=== PATIENT | female | born 1940 | race Caucasian/White ===

== ENCOUNTER → 2020-03-28 12:27 | Outpatient (BNVA) | payer MEDICARE, OTHER, SELFPAY | PROVIDERS: Family Provider Nurse Practitioner Family; PCP Nurse Practitioner Family; Visit Provider Nurse Practitioner Family | DX: I10 Essential (primary) hypertension (principal); E78.5 Hyperlipidemia, unspecified; R53.83 Other fatigue | CPT/HCPCS: 80053; 80061; 84443; 85025 ==

== ENCOUNTER → 2021-02-26 10:50 | Outpatient (BNVA) | payer MEDICARE, OTHER, SELFPAY | PROVIDERS: Family Provider Nurse Practitioner Family; PCP Nurse Practitioner Family; Visit Provider Nurse Practitioner Family | DX: M25.511 Pain in right shoulder (principal) | CPT/HCPCS: 73030 ==

== ENCOUNTER 2021-03-20 06:00 | Outpatient (RCR) | payer MEDICARE, OTHER, SELFPAY | END 2021-04-04 23:59 | disposition home or self-care (01) | LOC: WPT 06:00 | PROVIDERS: Family Provider Nurse Practitioner Family; PCP Nurse Practitioner Family; Referring Provider Orthopaedic Surgery; Visit Provider Orthopaedic Surgery | DX: M75.101 Unspecified rotator cuff tear or rupture of right shoulder, not specified as traumatic (principal) | CPT/HCPCS: 97110; 97161 ==

== ENCOUNTER 2021-04-05 06:00 | Outpatient (RCR) | payer MEDICARE, OTHER, SELFPAY | END 2021-05-05 23:59 | disposition home or self-care (01) | LOC: WPT 06:00 | PROVIDERS: Family Provider Nurse Practitioner Family; PCP Nurse Practitioner Family; Referring Provider Orthopaedic Surgery; Visit Provider Orthopaedic Surgery | DX: M75.101 Unspecified rotator cuff tear or rupture of right shoulder, not specified as traumatic (principal) | CPT/HCPCS: 97110 ==

== ENCOUNTER → 2021-06-15 14:46 | Outpatient (BNVA) | payer MEDICARE, OTHER, SELFPAY | PROVIDERS: Family Provider Nurse Practitioner Family; PCP Nurse Practitioner Family; Visit Provider Nurse Practitioner Family | DX: R30.0 Dysuria (principal); N39.0 Urinary tract infection, site not specified | CPT/HCPCS: 81000 ==

== ENCOUNTER → 2021-06-22 12:31 | Outpatient (BNVA) | payer MEDICARE, OTHER, SELFPAY | PROVIDERS: Family Provider Nurse Practitioner Family; PCP Nurse Practitioner Family; Visit Provider Nurse Practitioner Family | DX: N39.0 Urinary tract infection, site not specified (principal) | CPT/HCPCS: 81003; 87077; 87086; 87184 ==

== ENCOUNTER 2022-02-07 10:26 | Emergency (ER) | payer MEDICARE, OTHER, SELFPAY ==
[2022-02-07 10:31] VITALS: BP 173/82; PULSE 71; RESP 16; TEMP 36.7; O2SAT 100; BMI 32.5
--- NOTE | 2022-02-07 12:20 | XRR_ITS ---
PROCEDURE INFORMATION: Exam: XR Pelvis Exam date and time: 02/07/2022 12:26 PM Age: 81 years old Clinical indication: Pelvic pain; Patient HX: Chronic pain in RT hip and si joints; Additional info: Right hip and si pain TECHNIQUE: Imaging protocol: XR pelvis. Views: 1 or 2 view. Total images: 1 COMPARISON: CR Abdomen Series Acute [id number] 02/10/2019 7:41 PM FINDINGS: Bones/joints: Spinal fusion hardware noted. No acute fracture nor subluxation. No osseous erosion nor periosteal reaction. Soft tissues: Unremarkable. XR/XR pelvis 1-2V* [id number] IMPRESSION: No acute osseous pathology.
--- NOTE | 2022-02-07 12:21 | W.ED.BACK ---
HPI - Back Pain/Injury General: Chief Complaint: Back Pain/Injury Stated Complaint: Back pain Time Seen by Provider: 02/07/22 12:05 Source: patient and family Mode of arrival: ambulatory Limitations: no limitations History of Present Illness: This patient presents to the emergency department accompanied by her daughter as well as her . She states she is having right-sided low back and hip pain that began approximately 2 days ago. She states she rolled over in bed on the morning of the beginning of pain and felt symptoms. She states it is pretty constant and pretty uncomfortable. She states there is nothing that relieves it thus far. She states it is all right-sided starts in the right side of her back down low and radiates into her right butt cheek and around to her right lateral hip. She states it does not go below those regions. There is no difficulty with movement of the lower extremities. No perineal or perianal sensation changes. No difficulty with bowel or bladder control. She denies any fevers or chills. She has had a prior lumbar fusion for HNP as well as spinal stenosis that was done 10 years ago. She states she has some residual left leg numbness as a result of that procedure but no motor weakness. She states she occasionally gets left-sided low back pain but this is right-sided which is a little different than usual. She denies any falls or traumas or known inciting events other than rolling out of bed. She has a history of hypertension and bundle branch block. No history of dysuria, kidney stones etc. MD elicited complaint: back pain Pertinent past history: prior back pain and back surgery Location: lumbar spine and sacrum Radiation: buttocks Exacerbating factors: movement Relieving factors: none Context: unknown Associated symptoms: Reports no associated symptoms; Deny abdominal pain, chills, dysuria, fever(s), nausea, urinary urgency or vomiting Review of Systems Const: Denies: fever(s), chills or body aches Eyes: Denies: change in vision or photophobia ENMT: Denies: throat pain or odynophagia Card: Denies: chest pain, palpitations, irregular heart rhythm or swelling of feet/ankles Resp: Denies: dyspnea, productive cough or non-productive cough GI: Denies: abdominal pain, nausea or vomiting : Denies: flank pain, difficulty voiding, dysuria, urinary frequency, urinary urgency, urinary hesitancy, dribbling or urinary incontinence Musc: Reports: back pain; Denies: neck pain, extremity pain, extremity swelling or joint pain Skin/Breast: Denies: rash or pruritus Neuro: Denies: headache(s), weakness in extremities or sensory changes Pradip/Lymph: Denies: easy bruising or easy bleeding PFSH ED PFSH: Medical History (Updated 02/07/22 @ 13:42 by Willie Simmons DO) Allergic drug rash Anxiety COPD (chronic obstructive pulmonary disease) DJD of right shoulder Irritable bowel syndrome (IBS) Lower respiratory tract infection Osteoarthritis (arthritis due to wear and tear of joints) Right shoulder pain Rotator cuff tear, right Urinary tract infection UTI due to Klebsiella species Surgical History Status post intraocular lens implant Social History Smoking and tobacco status: never smoked Physical Exam Narrative: EXAM NARRATIVE: Elderly female who moves rather slowly with the aid of a walker. She is alert makes good eye contact speech is goal-directed. Const: COMMON NORMALS: no acute distress and patient oriented x3 GENERAL APPEARANCE: well kempt HENMT: COMMON NORMALS: normocephalic, atraumatic and Normal nasal mucous membranes and turbinates present HEAD & SCALP: normocephalic and atraumatic NOSE: Normal nasal mucous membranes and turbinates present Eye: COMMON NORMALS: Equal, round and reactive pupils present, EOMs intact bilaterally and conjunctivae normal CONJUNCTIVA: Yes conjunctivae normal PUPIL: Yes Equal, round and reactive pupils present Neck/C-Spine: COMMON NORMALS: full ROM, supple and no JVD CERVICAL SPINE: Yes cervical ROM normal, No pain with cervical ROM and No Paracervical muscle tenderness Resp: COMMON NORMALS: normal respiratory effort, No retractions and No use of accessory muscles EFFORT & INSPECTION: Yes able to speak in complete sentences Cardio: COMMON NORMALS: no JVD, regular rate and Peripheral pulses 2+ throughout RATE: regular rate PERIPHERAL PULSES: Peripheral pulses 2+ throughout GI: COMMON NORMALS: Soft to palpation, non-tender and no masses PALPATION: Yes Soft to palpation Back/Pelvis: COMMON NORMALS: thoracic and lumbar spine normal to inspection and straight leg raise negative bilaterally THORACIC SPINE/UPPER BACK: No thoracic spinal tenderness and No paraspinal muscle tenderness LUMBAR SPINE/LOWER BACK: Yes normal to inspection, Yes ROM limited and Yes paraspinal muscle tenderness Lumbar paraspinal muscle tenderness: right PELVIS: Yes sciatic notch tenderness on the right SACROILIAC JOINTS: Yes SI joint(s) abnormal SI joint details: tender to palpation (Right-sided) Extremity: COMMON NORMALS: normal to inspection, full ROM, no joint enlargement, no calf tenderness and no pedal edema Neuro: COMMON NORMALS: patient oriented x3, moves all extremities and no focal motor deficits SPEECH: speech normal DEEP TENDON REFLEXES: Right patellar reflex intensity grade: 1+, Left patellar reflex intensity grade: 1+, Right ankle reflex intensity grade: 1+ and Left ankle reflex intensity grade: 1+ Psych: COMMON NORMALS: mental status grossly normal APPEARANCE: Yes well kempt Skin: COMMON NORMALS: no rashes or lesions noted, no wounds and turgor normal GENERAL SKIN EXAM: no rashes or lesions noted and turgor normal Course Reevaluation(s): Reevaluation #1: Reviewed plain film with the patient and family. No evidence of acute bony disruption to include no evidence of hardware displacement etc. I do not feel any additional imaging is indicated at this time given her current history, clinical exam and plain film findings. I offered her trigger point injection for the area of discomfort over the posterior superior iliac spine. She agreed to proceed. Time: 13:11 Reevaluation #2: Using aseptic technique area of maximal tenderness in the soft tissue overlying the lumbar region and a region soft tissue overlying the sacroiliac joint was injected with 0.5% Marcaine approximately 4 mL or 20 mg of Marcaine injected in a fan like fashion. Patient tolerated procedure well and stated that she is already feeling relief. Time: 13:38 Vital Signs: Vital signs: Vital Signs Temperature 98.0 F 02/07/22 12:51 Pulse Rate 71 02/07/22 12:51 Respiratory Rate 16 02/07/22 12:51 Blood Pressure 173/82 02/07/22 12:51 Pulse Oximetry 100 02/07/22 12:51 MDM - Back Pain/Injury Medical Decision Making Patient with a known history of degenerative disc disease and prior spinal fusion many years ago presents with right sided low back pain predominantly in the sacroiliac region with some mild sciatic notch tenderness as well. Plain films of the pelvis to to illuminate SI joints, hip and pelvis and sacrum are unremarkable. She was given a trigger point injection which she tolerated well. I discussed expected course with the patient and family. Again no evidence at this time to suggest hardware disruption, or other red flag or worrisome findings at this time. Return precautions were detailed. Labs Radiology Impressions Pelvis X-Ray 02/07/22 12:20 IMPRESSION: No acute osseous pathology. Discharge Plan Discharge Patient Disposition: Home Clinical Impression: Low back pain Condition: Stable Prescriptions: No Action dicyclomine 20 mg tablet 20 mg PO QID PRN (Reason: abdominal discomfort) Qty: 30 0RF lidocaine HCl [Xylocaine] 10 mg/mL (1 %) solution 2 ml IM ONCE Qty: 1 0RF ceftriaxone 1 gram recon soln 1 gm IM ONCE Qty: 1 0RF dexamethasone sodium phosphate 10 mg/mL solution 4 mg IM ONCE Qty: 0.4 0RF dexamethasone sodium phosphate 4 mg/mL solution 4 mg IM ONCE Qty: 1 0RF losartan 25 mg tablet 25 mg PO DAILY 0RF meclizine 25 mg tablet 25 mg PO TID 0RF ibuprofen 800 mg tablet 800 mg PO Q8H PRN (Reason: pain) 0RF acetaminophen [Tylenol Extra Strength] 500 mg tablet 500 mg PO Q6H PRN (Reason: pain) 0RF omega-3 fatty acids 500 mg capsule 500 mg PO DAILY 0RF cholecalciferol (vitamin D3) 125 mcg (5,000 unit) capsule 125 mcg PO DAILY 0RF hydrocodone-acetaminophen 5-325 mg tablet 1 tab PO Q4H PRN (Reason: pain) 5 Days Qty: 20 0RF cefuroxime axetil 250 mg tablet 250 mg PO BID 7 Days Qty: 14 0RF metoprolol succinate 25 mg tablet extended release 24 hr 25 mg PO DAILY Qty: 90 2RF bupropion HCl 150 mg tablet extended release 24 hr See Rx Instructions .ROUTE .COMPLEX Qty: 90 1RF Dose Instruction: TAKE 1 TABLET BY MOUTH ONCE DAILY IN THE MORNING Rx Instructions: TAKE 1 TABLET BY MOUTH ONCE DAILY IN THE MORNING ciprofloxacin HCl [Cipro] 250 mg tablet 250 mg PO BID PRN (Reason: UTI) 5 Days Qty: 10 0RF doxycycline hyclate 100 mg capsule 100 mg PO BID Qty: 20 0RF Rx Instructions: take with food dexamethasone [Decadron] 6 mg tablet 6 mg PO DAILY Qty: 7 0RF albuterol sulfate 2.5 mg /3 mL (0.083 %) solution for nebulization See Rx Instructions .ROUTE .COMPLEX Qty: 180 2RF Dose Instruction: USE 1 VIAL VIA NEBULIZER FOUR TIMES DAILY NEEDED FOR SHORTNESS OF BREATH OR WHEEZING Rx Instructions: USE 1 VIAL VIA NEBULIZER FOUR TIMES DAILY NEEDED FOR SHORTNESS OF BREATH OR WHEEZING methocarbamol 750 mg tablet See Rx Instructions .ROUTE .COMPLEX Qty: 180 0RF Dose Instruction: Take 1 tablet by mouth twice daily Rx Instructions: Take 1 tablet by mouth twice daily Discharge Orders: Discharge ED (Routine); Ordered 02/07/22 Ordered By: Willie Simmons Referrals: CONSUELO Andino, HEALTHCARE SALES REPRESENTATIVE [Primary Care Provider] - Discharge Diet: Usual diet Discharge Activity: Increase activity as tolerated Patient Instructions: Opioid Safety Activity Restrictions/Additional Instructions: KeepAs we discussed we expect your low back pain to improve over the next 2 to 3 days. Continue as active as possible. Use your lidocaine patch as well as use cool packs to the area of involvement. Should you have increasing pain, nonresolution of pain, or any other concerning symptoms that we discussed return to this or the nearest emergency department or follow-up with your doctor. Coding Level of Care Code ED Liner Checker for Sai Mora Exam Comprehensive
[2022-02-07 12:51] VITALS: BP 173/82; PULSE 71; RESP 16; TEMP 36.7; O2SAT 100
== END 2022-02-07 14:16 | disposition home or self-care (01) ==
PROVIDERS: Emergency Provider Emergency Medicine; Family Provider Nurse Practitioner Family; PCP Nurse Practitioner Family
DX: M54.50 Low back pain, unspecified (principal); Z98.1 Arthrodesis status; Z79.891 Long term (current) use of opiate analgesic
CPT/HCPCS: 72170; 99283; J3490

== ENCOUNTER 2022-02-12 07:52 | Emergency (ER) | payer MEDICARE, OTHER, SELFPAY ==
[2022-02-12 08:02] VITALS: BP 179/84; PULSE 72; RESP 18; TEMP 36.4; O2SAT 97; BMI 31.5
--- NOTE | 2022-02-12 08:10 | ED_ITS ---
HPI - Back Pain/Injury General: Chief Complaint: Back Pain/Injury Stated Complaint: BACK PAIN X 1 WK Time Seen by Provider: 02/12/22 07:53 Source: patient Mode of arrival: EMS Limitations: no limitations History of Present Illness: 81-year-old female presents emergency room complaint of back pain that she had for the last week. She had problems with her back in the past and has history of remote previous back surgery. She is not had any precipitating event she has tried Robaxin at home as well as other oral anti-inflammatories and acetaminophen with no relief. She is given fentanyl in route she states pain is moderate now and is only worsens if she tries to move. She denies any dysuria urgency or frequency denies any abdominal pain. MD elicited complaint: back pain Pertinent past history: prior back pain Onset (ago): week(s) (1) Timing: constant Severity: severe Similar Symptoms Previously: Yes Quality: sharp Location: lumbar spine Radiation: none Exacerbating factors: movement Relieving factors: supine Associated symptoms: Deny abdominal pain, arthralgias, chills, change in bowel habits, difficulty walking, dysuria, fatigue, fecal incontinence, fever(s), hematuria, myalgias, nausea, numbness, syncope, tingling/numbness/burning, urinary frequency, urinary urgency, vomiting or weakness Review of Systems Const: Denies: fever(s), chills or fatigue ENMT: Denies: throat pain, ear or mastoid pain, nasal discharge or nasal congestion Card: Denies: chest pain, palpitations or syncope Resp: Denies: dyspnea, productive cough or non-productive cough GI: Denies: abdominal pain, nausea, vomiting, fecal incontinence or change in bowel habits : Denies: dysuria, urinary urgency or hematuria Skin/Breast: Denies: rash or pruritus Neuro: Denies: difficulty walking PFSH ED PFSH: Medical History Allergic drug rash Anxiety COPD (chronic obstructive pulmonary disease) DJD of right shoulder Irritable bowel syndrome (IBS) Lower respiratory tract infection Osteoarthritis (arthritis due to wear and tear of joints) Right shoulder pain Rotator cuff tear, right Urinary tract infection UTI due to Klebsiella species Surgical History Status post intraocular lens implant Social History Smoking and tobacco status: never smoked Physical Exam Const: GENERAL APPEARANCE: cooperative and comfortable ORIENTATION/CONSCIOUSNESS: Yes awake, Yes oriented to person, Yes oriented to place and Yes oriented to time HENMT: COMMON NORMALS: normocephalic, atraumatic and hearing grossly normal bilaterally HEAD & SCALP: normocephalic and atraumatic Neck/C-Spine: COMMON NORMALS: no JVD Resp: COMMON NORMALS: normal respiratory effort, No retractions, No use of accessory muscles and clear to auscultation bilaterally AUSCULTATION: clear to auscultation bilaterally Cardio: COMMON NORMALS: no JVD, regular rate, regular rhythm and No murmurs present (Cardio) RATE: regular rate RHYTHM: regular rhythm GI: COMMON NORMALS: Soft to palpation and No hepatosplenomegaly present AUSCULTATION: Yes normoactive bowel sounds PALPATION: Yes Soft to palpation, No Tenderness to palpation present (GI), No Guarding due to palpation present (GI) and Yes No hepatosplenomegaly present Extremity: COMMON NORMALS: normal to inspection, capillary refill normal, no clubbing, cyanosis or edema, no calf tenderness and no pedal edema Neuro: SENSORIUM/ORIENTATION: Yes oriented to person, Yes oriented to place and Yes oriented to time Skin: COMMON NORMALS: no rashes or lesions noted GENERAL SKIN EXAM: no rashes or lesions noted Course Vital Signs: Vital signs: Vital Signs Temperature 97.9 F 02/12/22 10:39 Pulse Rate 65 02/12/22 10:39 Respiratory Rate 18 02/12/22 10:39 Blood Pressure 146/92 02/12/22 10:39 Pulse Oximetry 100 02/12/22 09:36 MDM - Back Pain/Injury Medical Decision Making Improved with medications. No acute fractures previous hardware from back surgery in place no apparent loosening. We will discharge patient home with steroid taper muscle relaxer pain medications follow-up with primary care return if has problems Medical Records I reviewed the patient's medical records. Labs I reviewed the patient's lab results. Radiology Impressions Lumbar Spine X-Ray 02/12/22 08:10 IMPRESSION: Postoperative lumbar spine with no acute abnormality identified. Discharge Plan Discharge Patient Disposition: Home Clinical Impression: Strain of lumbar region Condition: Stable Prescriptions: New hydrocodone-acetaminophen 5-325 mg tablet 1 tab PO Q6H PRN (Reason: pain) Qty: 20 0RF prednisone 20 mg tablet 20 mg PO TID Qty: 15 0RF Rx Instructions: 1 p.o. 3 times daily x3 days, 1 p.o. twice daily x2 days, 1 p.o. daily x2 days tizanidine 2 mg capsule 2 mg PO Q8H PRN (Reason: muscle spasticity) Qty: 20 0RF Discontinued lidocaine HCl [Xylocaine] 10 mg/mL (1 %) solution 2 ml IM ONCE Qty: 1 0RF ceftriaxone 1 gram recon soln 1 gm IM ONCE Qty: 1 0RF dexamethasone sodium phosphate 10 mg/mL solution 4 mg IM ONCE Qty: 0.4 0RF dexamethasone sodium phosphate 4 mg/mL solution 4 mg IM ONCE Qty: 1 0RF hydrocodone-acetaminophen 5-325 mg tablet 1 tab PO Q4H PRN (Reason: pain) 5 Days Qty: 20 0RF cefuroxime axetil 250 mg tablet 250 mg PO BID 7 Days Qty: 14 0RF ciprofloxacin HCl [Cipro] 250 mg tablet 250 mg PO BID PRN (Reason: UTI) 5 Days Qty: 10 0RF doxycycline hyclate 100 mg capsule 100 mg PO BID Qty: 20 0RF Rx Instructions: take with food dexamethasone [Decadron] 6 mg tablet 6 mg PO DAILY Qty: 7 0RF methocarbamol 750 mg tablet See Rx Instructions .ROUTE .COMPLEX Qty: 180 0RF Dose Instruction: Take 1 tablet by mouth twice daily Rx Instructions: Take 1 tablet by mouth twice daily No Action dicyclomine 20 mg tablet 20 mg PO QID PRN (Reason: abdominal discomfort) Qty: 30 0RF losartan 25 mg tablet 25 mg PO DAILY 0RF meclizine 25 mg tablet 25 mg PO TID 0RF ibuprofen 800 mg tablet 800 mg PO Q8H PRN (Reason: pain) 0RF acetaminophen [Tylenol Extra Strength] 500 mg tablet 500 mg PO Q6H PRN (Reason: pain) 0RF omega-3 fatty acids 500 mg capsule 500 mg PO DAILY 0RF cholecalciferol (vitamin D3) 125 mcg (5,000 unit) capsule 125 mcg PO DAILY 0RF metoprolol succinate 25 mg tablet extended release 24 hr 25 mg PO DAILY Qty: 90 2RF bupropion HCl 150 mg tablet extended release 24 hr See Rx Instructions .ROUTE .COMPLEX Qty: 90 1RF Dose Instruction: TAKE 1 TABLET BY MOUTH ONCE DAILY IN THE MORNING Rx Instructions: TAKE 1 TABLET BY MOUTH ONCE DAILY IN THE MORNING albuterol sulfate 2.5 mg /3 mL (0.083 %) solution for nebulization See Rx Instructions .ROUTE .COMPLEX Qty: 180 2RF Dose Instruction: USE 1 VIAL VIA NEBULIZER FOUR TIMES DAILY NEEDED FOR SHORTNESS OF BREATH OR WHEEZING Rx Instructions: USE 1 VIAL VIA NEBULIZER FOUR TIMES DAILY NEEDED FOR SHORTNESS OF BREATH OR WHEEZING Discharge Orders: Discharge ED (Routine); Ordered 02/12/22 Ordered By: Alfred Nuñez Referrals: CONSUELO Andino, SARAHY [Referring] - Discharge Diet: Usual diet Discharge Activity: Increase activity as tolerated Patient Instructions: Opioid Safety Activity Restrictions/Additional Instructions: Follow-up with your primary care doctor as soon as you are able. Increase activity as tolerated. Coding Level of Care Code ED Street Railway Line Installer for Sai Fwmadelaine Exam Comprehensive
--- NOTE | 2022-02-12 08:10 | XR_ITS ---
WS: [id number] XR lumbar spine 2-3V* [id number] REASON FOR EXAM: low back pain FINDINGS: No compression fracture or other vertebral body abnormality. Posterior pedicle screws and rods L3-S1. Interbody fusion L3-S1. Severe narrowing of the intervertebral disc space at L1-L2 with 3/4 mm of anterolisthesis of L2 in re lation to L1. XR/XR lumbar spine 2-3V* [id number] IMPRESSION: Postoperative lumbar spine with no acute abnormality identified.
[2022-02-12] MEDS: ketorolac 30 mg/mL INJ 15 MG IVP (08:21)
[2022-02-12] MEDS: orphenadrine 30 mg/mL Inj 2 mL 60 MG IVP (08:21)
[2022-02-12 09:15] VITALS: BP 179/94; PULSE 96; RESP 18; TEMP 5392.7; TEMP 9739; O2SAT 99
[2022-02-12 09:36] VITALS: BP 150/63; PULSE 65; RESP 18; O2SAT 100
[2022-02-12] MEDS: dexamethasone 10 mg/mL INJ IVP (10:36)
[2022-02-12 10:39] VITALS: BP 146/92; PULSE 65; RESP 18; TEMP 36.6
== END 2022-02-12 10:56 | disposition home or self-care (01) ==
PROVIDERS: Emergency Provider Family Medicine; PCP Family Medicine
DX: S39.012A Strain of muscle, fascia and tendon of lower back, initial encounter (principal); X58.XXXA Exposure to other specified factors, initial encounter; Z79.891 Long term (current) use of opiate analgesic
CPT/HCPCS: 72100; 96374; 96375; 99284; J1100; J1885; J2360

== ENCOUNTER 2022-03-19 06:00 | Outpatient (RCR) | payer MEDICARE, OTHER, SELFPAY | END 2022-04-04 23:59 | disposition home or self-care (01) | LOC: WPT 06:00 | PROVIDERS: PCP Family Medicine; Referring Provider Family Medicine; Visit Provider Family Medicine | DX: M75.100 Unspecified rotator cuff tear or rupture of unspecified shoulder, not specified as traumatic (principal) | CPT/HCPCS: 97161 ==

== ENCOUNTER → 2022-04-25 10:33 | Outpatient (BNVA) | payer MEDICARE, OTHER, SELFPAY | PROVIDERS: PCP Family Medicine; Visit Provider Anesthesiology Pain Medicine | DX: M47.816 Spondylosis without myelopathy or radiculopathy, lumbar region (principal); M53.3 Sacrococcygeal disorders, not elsewhere classified; M43.26 Fusion of spine, lumbar region; M19.011 Primary osteoarthritis, right shoulder; M79.605 Pain in left leg; M79.604 Pain in right leg; Z79.891 Long term (current) use of opiate analgesic | CPT/HCPCS: 99205 ==

== ENCOUNTER → 2022-04-30 13:25 | Outpatient (BNVA) | payer MEDICARE, OTHER, SELFPAY | PROVIDERS: PCP Family Medicine; Visit Provider Orthopaedic Surgery | DX: M54.50 Low back pain, unspecified (principal); M79.604 Pain in right leg; Z98.1 Arthrodesis status | CPT/HCPCS: 99204 ==

== ENCOUNTER 2022-06-20 13:51 | Outpatient (CLI) | payer MEDICARE, OTHER, SELFPAY ==
--- NOTE | 2022-06-20 13:58 | USCV_ITS ---
InfanteChloé Age: 81 Gender: F : 1940 Exam Date: 06/20/2022 14:08 Ordering Phys: Dawson Alcala Technologist: Exam Location: [facility] [place] Indication: Arrhythmia BP: 126 / 72 HR: 79 Rhythm: Sinus Technical Quality: Adequate MEASUREMENTS (Male / Female) Normal Values 2D ECHO LV Diastolic Diameter PLAX 3.5 cm 4.2 - 5.9 / 3.9 - 5.3 cm LV Systolic Diameter PLAX 2.2 cm IVS Diastolic Thickness 1.4 cm 0.6 - 1.0 / 0.6 - 0.9 cm IVS Systolic Thickness 1.1 cm LVPW Diastolic Thickness 1.1 cm 0.6 - 1.0 / 0.6 - 0.9 cm LVPW Systolic Thickness 1.0 cm LVOT Diameter 2.0 cm LV Ejection Fraction 2D Teich 66.9 % LA Diameter 3.3 cm Aorta at Sinotubular Diameter 2.5 cm IVC Diameter 1.2 cm M-MODE Aortic Annulus Diameter 3.0 cm LA Ao Ratio MM 1.1 MV E Point Septal Separation 0.7 cm DOPPLER AV Peak Velocity 116.0 cm/s LVOT Peak Velocity 84.0 cm/s AV Area Cont Eq vti 2.1 cm squared AV Area Cont Eq pk 2.3 cm squared MV Area PHT 5.0 cm squared Mitral E to A Ratio 0.9 MV E' Velocity 47.5 cm/s Mitral E to MV E' Ratio 12.9 Mitral E to LV E' Lateral Ratio 11.4 Mitral E to LV E' Septal Ratio 15.2 TR Peak Velocity 272.7 cm/s TR Peak Gradient 29.7 mmHg Right Atrial Pressure 3.0 mmHg Pulmonary Artery Systolic Pressu 32.7 mmHg PV Peak Velocity 111.0 cm/s RV Acceleration Time 0.1 s FINDINGS Left Ventricle Normal left ventricular size, systolic function and wall thickness, with no regional wall motion abnormalities. Left ventricular ejection fraction is estimated at 55-60 %. Normal diastolic function. Right Ventricle Normal right ventricular size and systolic function. Right ventricular systolic pressure 31 mmHg. Right Atrium Normal right atrial size. Left Atrium Normal left atrial size. Mitral Valve Mildly thickened mitral valve. No mitral valve stenosis. Trace mitral valve regurgitation. Aortic Valve Structurally normal trileaflet aortic valve. No aortic valve stenosis. No aortic valve regurgitation. Tricuspid Valve Structurally normal tricuspid valve. No tricuspid valve stenosis. Mild tricuspid valve regurgitation. Pulmonic Valve Structurally normal pulmonic valve. No pulmonary valve stenosis. No pulmonary valve regurgitation. Pericardium No pericardial effusion. Aorta Normal size aortic root and proximal ascending aorta. IVC Normal IVC dimension with >50% respiratory change of the inferior vena cava. CONCLUSIONS 1. Normal left ventricular size, systolic function and wall thickness, with no regional wall motion abnormalities. Left ventricular ejection fraction is estimated at 55-60 %. Normal diastolic function. 2. Normal right ventricular size and systolic function. 3. Mild tricuspid valve regurgitation. 4. Pulmonary artery pressure estimated at 31 mmHg. 5. No prior similar studies to compare. Denise Herrera MD (Electronically Signed) Final Date: 20 June 2022 16:27 S
== END 2022-06-20 13:52 | disposition home or self-care (01) ==
LOC: RAD 13:52
PROVIDERS: PCP Family Medicine; Visit Provider Family Medicine
DX: R01.1 Cardiac murmur, unspecified (principal); R42 Dizziness and giddiness; R00.0 Tachycardia, unspecified; I49.9 Cardiac arrhythmia, unspecified; I07.1 Rheumatic tricuspid insufficiency
CPT/HCPCS: 93306

== ENCOUNTER → 2022-06-26 13:31 | Outpatient (BNVA) | payer MEDICARE, OTHER, SELFPAY | PROVIDERS: PCP Family Medicine; Visit Provider Anesthesiology Pain Medicine | DX: M47.816 Spondylosis without myelopathy or radiculopathy, lumbar region (principal); M53.3 Sacrococcygeal disorders, not elsewhere classified; M19.011 Primary osteoarthritis, right shoulder; M43.26 Fusion of spine, lumbar region; M79.604 Pain in right leg; M79.605 Pain in left leg; M25.551 Pain in right hip | CPT/HCPCS: 99214 ==

== ENCOUNTER → 2022-07-16 13:44 | Outpatient (BNVA) | payer MEDICARE, OTHER, SELFPAY | PROVIDERS: PCP Family Medicine; Visit Provider Anesthesiology Pain Medicine | DX: M47.816 Spondylosis without myelopathy or radiculopathy, lumbar region (principal) | CPT/HCPCS: 64450 ==

== ENCOUNTER → 2022-08-01 10:56 | Outpatient (BNVA) | payer MEDICARE, OTHER, SELFPAY | PROVIDERS: PCP Family Medicine; Visit Provider Anesthesiology Pain Medicine | DX: M47.816 Spondylosis without myelopathy or radiculopathy, lumbar region (principal); M43.26 Fusion of spine, lumbar region; M53.3 Sacrococcygeal disorders, not elsewhere classified; M19.011 Primary osteoarthritis, right shoulder; M79.604 Pain in right leg; M79.605 Pain in left leg | CPT/HCPCS: 99214 ==

== ENCOUNTER → 2022-08-22 13:36 | Outpatient (BNVA) | payer MEDICARE, OTHER, SELFPAY | PROVIDERS: PCP Family Medicine; Visit Provider Anesthesiology Pain Medicine | DX: M47.816 Spondylosis without myelopathy or radiculopathy, lumbar region (principal) | CPT/HCPCS: 64635; 64636; J1030 ==

== ENCOUNTER → 2022-09-11 13:46 | Outpatient (BNVA) | payer MEDICARE, OTHER, SELFPAY | PROVIDERS: PCP Family Medicine; Visit Provider Anesthesiology Pain Medicine | DX: M47.816 Spondylosis without myelopathy or radiculopathy, lumbar region (principal); M43.26 Fusion of spine, lumbar region; M53.3 Sacrococcygeal disorders, not elsewhere classified; M19.011 Primary osteoarthritis, right shoulder; M79.604 Pain in right leg; M79.605 Pain in left leg; M25.551 Pain in right hip | CPT/HCPCS: 99212 ==

== ENCOUNTER → 2023-03-12 12:48 | Outpatient (BNVA) | payer MEDICARE, OTHER, SELFPAY | PROVIDERS: PCP Family Medicine; Visit Provider Anesthesiology Pain Medicine | DX: M47.816 Spondylosis without myelopathy or radiculopathy, lumbar region (principal); M53.3 Sacrococcygeal disorders, not elsewhere classified; M19.011 Primary osteoarthritis, right shoulder; M43.26 Fusion of spine, lumbar region | CPT/HCPCS: 99214 ==

== ENCOUNTER → 2023-04-02 12:10 | Outpatient (BNVA) | payer MEDICARE, OTHER, SELFPAY | PROVIDERS: PCP Family Medicine; Visit Provider Anesthesiology Pain Medicine | DX: M43.26 Fusion of spine, lumbar region (principal); M53.3 Sacrococcygeal disorders, not elsewhere classified; M47.816 Spondylosis without myelopathy or radiculopathy, lumbar region; Z98.1 Arthrodesis status; M25.551 Pain in right hip | CPT/HCPCS: 72110; 73522; 99215 ==

== ENCOUNTER → 2023-07-08 10:28 | Outpatient (BNVA) | payer MEDICARE, OTHER, SELFPAY | PROVIDERS: PCP Family Medicine; Visit Provider Internal Medicine Cardiovascular Disease | DX: I44.7 Left bundle-branch block, unspecified (principal); J44.9 Chronic obstructive pulmonary disease, unspecified; N18.31 Chronic kidney disease, stage 3a; F41.9 Anxiety disorder, unspecified; M19.90 Unspecified osteoarthritis, unspecified site | CPT/HCPCS: 93005; 99204 ==

== ENCOUNTER → 2023-09-11 10:47 | Outpatient (BNVA) | payer MEDICARE, OTHER, SELFPAY | PROVIDERS: PCP Family Medicine; Visit Provider Anesthesiology Pain Medicine | DX: M47.816 Spondylosis without myelopathy or radiculopathy, lumbar region; M53.3 Sacrococcygeal disorders, not elsewhere classified; M19.011 Primary osteoarthritis, right shoulder; M43.26 Fusion of spine, lumbar region | CPT/HCPCS: 99214 ==